=== PATIENT | female | born 1960 ===

== ENCOUNTER 2017-05-06 05:06 | Emergency (ER) | payer MEDICAID ==
[2017-05-06] MEDS ORDERED: Lactated Ringer's 1,000 ML IV ONE (05:28)
--- NOTE | 2017-05-06 05:29 | C.PDOC ---
History Of Present Illness 56 y/o female hx of hypertension presents to the ED complaining of lower abdominal pain for one week. The pain started as mild and dull which gradually worsened the last 2 days. She reports associated urinary frequency and nausea today. The patient denies fever, vomiting, constipation , and diarrhea. Time Seen by Provider: 05/06/17 05:19 Chief Complaint (Nursing): Abdominal Pain History Per: Patient History/Exam Limitations: no limitations Onset/Duration Of Symptoms: Days Current Symptoms Are (Timing): Still Present Context: Food Location Of Pain/Discomfort: Suprapubic Radiation Of Pain To:: None Quality Of Discomfort: "Pain" Associated Symptoms: Nausea Exacerbating Factors: None Alleviating Factors: None Last Bowel Movement: Yesterday Recent travel outside of the [place]: No Additional History Per: Patient Past Medical History Reviewed: Historical Data, Nursing Documentation, Vital Signs Vital Signs: Last Vital Signs Temp 97.8 F 05/06/17 05:17 Pulse 89 05/06/17 05:17 Resp 20 05/06/17 05:17 BP 148/66 05/06/17 05:17 Pulse Ox 98 05/06/17 06:01 - Medical History PMH: HTN, Hypothyroidism Surgical History: No Surg Hx Family History: States: No Known Family Hx - Social History Hx Alcohol Use: No Hx Substance Use: No Review Of Systems Except As Marked, All Systems Reviewed And Found Negative. Constitutional: Negative for: Fever Respiratory: Negative for: Cough, Shortness of Breath Gastrointestinal: Positive for: Nausea. Negative for: Vomiting, Diarrhea, Constipation Genitourinary: Positive for: Frequency. Negative for: Dysuria, Vaginal Discharge, Vaginal Bleeding Skin: Negative for: Rash Neurological: Negative for: Headache, Dizziness Physical Exam - Physical Exam Appears: Non-toxic, No Acute Distress Skin: Warm, Dry Head: Atraumatic, Normacephalic Eye(s): bilateral: Normal Inspection, EOMI Oral Mucosa: Moist Neck: Supple Chest: Symmetrical Cardiovascular: Rhythm Regular Respiratory: Normal Breath Sounds, No Rales, No Rhonchi, No Wheezing Gastrointestinal/Abdominal: Bowel Sounds, Soft, Tenderness (suprapubic), No Distention, No Guarding, No Rebound Back: Normal Inspection, No CVA Tenderness Extremity: Bilateral: Atraumatic, Normal Color And Temperature, Normal ROM Neurological/Psych: Oriented x3, Normal Speech Gait: Steady ED Course And Treatment - Laboratory Results Result Diagrams: 05/06/17 05:36 05/06/17 05:36 Lab Interpretation: No Acute Changes O2 Sat by Pulse Oximetry: 98 (RA) Pulse Ox Interpretation: Normal Medical Decision Making Medical Decision Making: Impression: lower abdominal pain Plan: * Labs * UA * IV LR (NS national shortage) * Griseldafran Progress: 0600 Labs reviewed and unremarkable; no leukocytosis, no electrolyte abnormality. UA WNL. 06:25 Obstructive series viewed by me showing normal normal heart size, no cardiopulmonary disease; scoliosis of spine and degenerative disk disease; moderate fecal retention, no dilated bowel loops or air fluid levels to suggest obstruction 06:27 Patient reevaluated at bedside, she has no fever and stable vital signs. She reports pain has improved. Abdomen remains soft without guarding or rebound and minimally tender to suprapubic region. Discussed all results and provide copy of lab reports to patient. Recommend increase in fluid and fiber intake. Will discharge with Rx and instruct to follow up with primary physician. Disposition Counseled Patient/Family Regarding: Studies Performed, Diagnosis, Need For Followup, Rx Given - Disposition Referrals: [facility] [Outside] [facility] [Outside] Disposition: HOME/ ROUTINE Disposition Time: 06:32 Condition: IMPROVED Additional Instructions: Your labs were normal and xray shows constipation. A urine culture was sent out and may take 1-2 days for results, we will call you with any findings. Please take medications to help with pain and constipation. Increase your fiber and water intake. Follow up with your doctor or clinic for further care. Return to the emergency department at any time if symptoms persist or worsen. Prescriptions: Dicyclomine [Dicyclomine HCl] 10 mg PO Q4 PRN #20 cap PRN Reason: Gi Distress Docusate [Colace] 100 mg PO Q8 PRN #60 cap PRN Reason: Constipation Magnesium Citrate [Citrate of Mag] 300 ml PO ONCE PRN #1 bottle PRN Reason: Constipation Instructions: Acute Abdominal Pain (DC) Forms: [facility] (Kiswahili) - POA Present On Arrival: None - Clinical Impression Clinical Impression: Abdominal pain, Constipation - Scribe Statement The provider has reviewed the documentation as recorded by the Marjorie Nichole All medical record entries made by the Christyibletty were at my direction and personally dictated by me. I have reviewed the chart and agree that the record accurately reflects my personal performance of the history, physical exam, medical decision making, and the department course for this patient. I have also personally directed, reviewed, and agree with the discharge instructions and disposition.
[2017-05-06 05:39] VITALS: RESP 20; O2SAT 98
[2017-05-06 05:39] LABS: MEAN CELL VOLUME 84.2 fL (81.0-99.0); MEAN CORPUSCULAR HEMOGLOBIN 28.3 pg (27.0-31.0); MEAN CORPUSCULAR HGB CONC 33.6 g/dL (33.0-37.0); MEAN PLATELET VOLUME 8.4 fL (7.2-11.7); RED CELL DISTRIBUTION WIDTH 13.7 % (11.5-14.5); WHITE BLOOD COUNT 6.1 K/uL (4.8-10.8)
[2017-05-06 05:48] LABS: URINE BILIRUBIN NEGATIVE (NEGATIVE); URINE BLOOD NEGATIVE (NEGATIVE); URINE COLOR Straw (YELLOW); URINE GLUCOSE (UA) NORMAL (Normal); URINE KETONE NEGATIVE (NEGATIVE); URINE LEUKOCYTE ESTERASE NEG Leu/uL (Negative); URINE PROTEIN NEGATIVE (NEGATIVE); URINE UROBILINOGEN NORMAL mg/dL (0.2-1.0); WBC URINE 1 /hpf (0-5)
[2017-05-06 05:52] LABS: ALB/GLOB RATIO 1.3 (1.0-2.1); ALKALINE PHOSPHATASE 95 U/L (38-126); ALT/SGPT 49 U/L (9-52); AST/SGOT 28 U/L (14-36); BILIRUBIN,TOTAL 0.7 mg/dL (0.2-1.3); BLOOD UREA NITROGEN 19 mg/dL (7-17); CALCIUM 8.8 mg/dl (8.6-10.4); CARBON DIOXIDE 25 mmol/L (22-30); CHLORIDE 102 mmol/L (98-107); GFR AFRICAN-AMERICAN > 60; GLUCOSE,RANDOM 103 mg/dL (65-105); POTASSIUM 3.9 mmol/L (3.6-5.2); SODIUM 137 mmol/L (132-148); TOTAL PROTEIN 7.4 g/dL (6.3-8.3)
[2017-05-06 06:50] VITALS: BP 148/70; PULSE 91; TEMP 98.3
--- NOTE | 2017-05-06 09:47 | RAD ---
PROCEDURE: Radiographs of the chest and abdomen (obstructive series) HISTORY: Abd Pain COMPARISON: No prior. TECHNIQUE: AP radiograph of the chest, with upright and supine radiographs of the abdomen. FINDINGS: CHEST: Lungs: A small calcified granuloma seen the mid left lung zone laterally with remaining lung abdullahi clear. Cardiovascular: And magnification is considered versus intrinsic cardiomegaly. No pulmonary vascular derangement identified. Pleura: No pleural fluid. No pneumothorax. Other findings: None. ABDOMEN AND PELVIS: Bowel: Unremarkable bowel gas pattern. No evidence of mechanical obstruction. Prominent fecal loading right hemicolon, mild otherwise throughout the remaining large bowel loops. Free air: None. Bones: Unremarkable. Other findings: Likely phlebolith type calcifications in the inferior pelvis. IMPRESSION: Unremarkable radiographs of chest and abdomen. No evidence of mechanical bowel obstruction.
== END 2017-05-06 06:54 | disposition home or self-care (01) ==
LOC: C.ER 05:06
DX: K59.00 Constipation, unspecified (principal); R10.30 Lower abdominal pain, unspecified
CPT/HCPCS: 74022; 80053; 81001; 85027; 87086; 96361; 96374; 96375; 99285; J1885; J2405; J7120

== ENCOUNTER 2017-06-14 21:02 | Emergency (ER) | payer BC, MEDICAID ==
--- NOTE | 2017-06-14 23:07 | C.PDOC ---
History Of Present Illness Patient presents to the ER with a complaint of LLQ pain that has been progressively worsening this past week. She states she saw her doctor who said she needs a CT. Denies fever, chills, nausea, or vomiting. Time Seen by Provider: 06/14/17 23:07 Chief Complaint (Nursing): Abdominal Pain History Per: Patient History/Exam Limitations: no limitations Onset/Duration Of Symptoms: Days, Worse Since Current Symptoms Are (Timing): Still Present Severity: Moderate Pain Scale Rating Of: 5 Location Of Pain/Discomfort: LLQ Radiation Of Pain To:: None Quality Of Discomfort: Unable To Describe Associated Symptoms: denies: Fever, Chills, Nausea, Vomiting Exacerbating Factors: None Alleviating Factors: None Recent travel outside of the [place]: No Abnormal Vaginal Bleeding: No Past Medical History Reviewed: Historical Data, Nursing Documentation, Vital Signs Vital Signs: Last Vital Signs Temp 98.8 F 06/14/17 22:02 Pulse 87 06/14/17 22:02 Resp 16 06/14/17 22:02 BP 153/85 H 06/14/17 22:02 Pulse Ox 98 06/14/17 23:56 - Medical History PMH: HTN, Hypothyroidism Family History: States: No Known Family Hx - Social History Hx Alcohol Use: No Hx Substance Use: No - Immunization History Hx Tetanus Toxoid Vaccination: No Hx Influenza Vaccination: No Hx Pneumococcal Vaccination: No Review Of Systems Constitutional: Negative for: Fever, Chills Cardiovascular: Negative for: Chest Pain Gastrointestinal: Positive for: Abdominal Pain. Negative for: Nausea, Vomiting Genitourinary: Negative for: Dysuria Musculoskeletal: Negative for: Back Pain Skin: Negative for: Rash Neurological: Negative for: Weakness Psych: Negative for: Anxiety Physical Exam - Physical Exam Appears: Non-toxic, Other (Morbidly obese) Skin: Warm, Dry Head: Normacephalic Oral Mucosa: Moist Neck: Supple Chest: Symmetrical, No Tenderness Cardiovascular: Rhythm Regular Respiratory: No Rales, No Rhonchi, No Wheezing Gastrointestinal/Abdominal: Bowel Sounds (Active), Soft, Tenderness (Left inguinal, no evidence of hernia), No Guarding, No Rebound Back: Normal Inspection, No CVA Tenderness, Straight Leg Raising (Left leg positive at 40 degrees) Extremity: Normal ROM Extremity: Bilateral: Atraumatic Pulses: Left Dorsalis Pedis: Normal, Right Dorsalis Pedis: Normal Neurological/Psych: Oriented x3, Normal Speech, Normal Cognition Gait: Steady ED Course And Treatment - Laboratory Results Result Diagrams: 06/14/17 23:40 06/14/17 23:40 O2 Sat by Pulse Oximetry: 98 (room air) Pulse Ox Interpretation: Normal Progress Note: CT abd/pel, blood work, and urinalysis ordered. Morphine, pepcid , and zofran administered. 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 - Scribe Statement The provider has reviewed the documentation as recorded by the Scribletty Moffett All medical record entries made by the Christyibletty were at my direction and personally dictated by me. I have reviewed the chart and agree that the record accurately reflects my personal performance of the history, physical exam, medical decision making, and the department course for this patient. I have also personally directed, reviewed, and agree with the discharge instructions and disposition.
[2017-06-14 23:43] LABS: BASO # 0.1 K/uL (0.0-0.2); BASO % 1.1 % (0.0-2.0); EOS # 0.1 K/uL (0.0-0.7); EOS % 0.9 % (0.0-4.0); LYMPH # 1.7 K/uL (1.0-4.3); LYMPH % 21.5 % (20.0-40.0); MEAN CELL VOLUME 83.3 fL (81.0-99.0); MEAN CORPUSCULAR HEMOGLOBIN 28.4 pg (27.0-31.0); MEAN CORPUSCULAR HGB CONC 34.1 g/dL (33.0-37.0); MEAN PLATELET VOLUME 7.9 fL (7.2-11.7); MONO # 0.5 K/uL (0.0-0.8); MONO % 5.7 % (0.0-10.0); NEUT # 5.7 K/uL (1.8-7.0); NEUT % 70.8 % (50.0-75.0); NRBC % 0.1 % (0.0-2.0); RBC 5.29 Mil/uL (3.80-5.20); RED CELL DISTRIBUTION WIDTH 14.6 % (11.5-14.5)
[2017-06-14 23:51] LABS: INR 0.9; PROTHROMBIN TIME 10.4 SECONDS (9.7-12.2)
[2017-06-14 23:54] LABS: CALCIUM 8.8 mg/dl (8.6-10.4); GFR AFRICAN-AMERICAN > 60; GFR NON-AFRICAN AMERICAN > 60; LIPASE 127 U/L (23-300)
[2017-06-14 23:55] LABS: ALB/GLOB RATIO 1.1 (1.0-2.1); ALBUMIN 4.7 g/dL (3.5-5.0); ALT/SGPT 41 U/L (9-52); AST/SGOT 46 U/L (14-36); BLOOD UREA NITROGEN 18 mg/dL (7-17)
--- NOTE | 2017-06-15 00:28 | CT ---
EXAM: CT Abdomen and Pelvis Without Intravenous Contrast CLINICAL HISTORY: 56 years old, female; Pain; Abdominal pain; Flank; Lower; Additional info: Llq pain, left inguinal area pain TECHNIQUE: Axial computed tomography images of the abdomen and pelvis without intravenous contrast. All CT scans at this facility use one or more dose reduction techniques, viz.: automated exposure control; ma/kV adjustment per patient size (including targeted exams where dose is matched to indication; i.e. head); or iterative reconstruction technique. Coronal and sagittal reformatted images were created and reviewed. COMPARISON: No relevant prior studies available. FINDINGS: Lower thorax: Coronary artery calcifications. 5 mm calcified granuloma left lower lobe ABDOMEN: Liver: Unremarkable. Gallbladder and bile ducts: Unremarkable. No calcified stones. No ductal dilation. Pancreas: Unremarkable. No ductal dilation. Spleen: Unremarkable. No splenomegaly. Adrenals: Unremarkable. No mass. Kidneys and ureters: Punctate right renal calculus. 3.5 CM left upper pole renal cyst. No hydronephrosis. Stomach and bowel: Unremarkable. No obstruction. Appendix: No findings to suggest acute appendicitis. PELVIS: Bladder: Unremarkable. No stones. Reproductive: Unremarkable as visualized. ABDOMEN and PELVIS: Intraperitoneal space: Unremarkable. No free air. No significant fluid collection. Bones/joints: Scoliosis. Lumbar spinal degenerative changes. No acute fracture. No dislocation. Soft tissues: Small fat containing umbilical hernia. Small fat containing umbilical hernia. Vasculature: Atherosclerotic vascular disease. No abdominal aortic aneurysm. Lymph nodes: Unremarkable. No enlarged lymph nodes. IMPRESSION: 1. No evidence of left hydronephrosis, renal, or ureteral calculus. 2. Sigmoid diverticuli. No findings to suggest acute diverticulitis. 3. No evidence of left inguinal hernia. 4. Remainder of findings as above.
[2017-06-15] MEDS ORDERED: Morphine 4 MG/ML VIAL IV ONE (01:16)
[2017-06-15] MEDS ORDERED: Morphine 4 MG/ML VIAL ONE (01:37)
[2017-06-15 01:49] VITALS: BP 111/63; PULSE 71; RESP 20; TEMP 98.1; O2SAT 95
== END 2017-06-15 01:54 | disposition home or self-care (01) ==
LOC: C.ER 21:02
DX: R10.32 Left lower quadrant pain (principal)
CPT/HCPCS: 74176; 80053; 83690; 85025; 85610; 85730; 96374; 96375; 96376; 99283; J2270; J2405

== ENCOUNTER 2018-11-03 15:47 | Outpatient (CLI) | payer MEDICAID | END 2018-11-03 15:48 | disposition home or self-care (01) | LOC: C.MAMMO 15:47 | DX: Z12.31 Encounter for screening mammogram for malignant neoplasm of breast (principal) ==